=== PATIENT | male | born 1985 | race African-American/Black ===

== ENCOUNTER 2018-05-25 12:01 | Emergency (ER) | payer MEDICAID, OTHER ==
[2018-05-25] MEDS ORDERED: LIDOCAINE 1% INJ-PF (10 MG/ML) 30 ML SDV INJ ONE (12:27)
--- NOTE | 2018-05-25 12:33 | ER Document Report ---
HPI - HPI Time Seen by Provider: 05/25/18 12:22 Pain Level: 5 Notes: Patient is a 32-year-old male no significant past medical history who presents to the ED complaining of a boil to his inferior umbilical area times 3 days. Patient states that it started out as ingrown hair that he tried to "pop" and then resulted in more swelling and pain. Denies any drug allergies or IV drug use. No other concerns or complaints. Denies any headache, fever, URI, sore throat, chest pain, palpitations, syncope, cough, shortness of breath, wheeze, dyspnea, abdominal pain, nausea/vomiting/diarrhea, urinary retention, dysuria, hematuria. - ROS Systems Reviewed and Negative: Yes All other systems reviewed and negative Past Medical History - Social History Smoking Status: Never Smoker Family History: Reviewed & Not Pertinent Vertical Provider Document - CONSTITUTIONAL Agree With Documented VS: Yes Notes: PHYSICAL EXAMINATION: GENERAL: Well-appearing, well-nourished and in no acute distress. LUNGS: Breath sounds clear to auscultation bilaterally and equal. No wheezes rales or rhonchi. HEART: Regular rate and rhythm without murmurs, rubs, gallops. Musculoskeletal: FROM to passive/active. Strength 5+/5. Extremities: No cyanosis, clubbing, or edema b/l. Peripheral pulses 2+. Capillary refill less than 3 seconds. NEUROLOGICAL: Cranial nerves grossly intact. Normal speech, normal gait. Normal sensory, motor exams PSYCH: Normal mood, normal affect. SKIN: inferior umbilical area: there is a 5x4cm mildly erythemic, indurated, abscess noted. No streaks or active purulence. + tenderness associated. - INFECTION CONTROL TRAVEL OUTSIDE OF THE [place] IN LAST 30 DAYS: No Course - Re-evaluation Re-evalutation: 05/25/18 13:10 Patient is an afebrile, well-hydrated, 32-year-old male who presents to the ED with an abscess to his lower abdominal wall. Vitals are acceptable without significant tachycardia is otherwise unremarkable. Incision and drainage was performed successfully without any complications. Wound culture was obtained and wound dressing was placed. Wound instructions reviewed. Patient is nontoxic-appearing and is tolerating p.o. without difficulty. No further labs or imaging warranted at this time. I will send him home with a prescription for Keflex and Bactrim. Conservative measures otherwise. Recheck with your PCM in 2-3 days. Return to the ED with any worsening/concerning symptoms otherwise as reviewed discharge. Patient is in agreement. - Vital Signs Vital signs: Temp Pulse Resp BP Pulse Ox 99.0 F 77 16 124/75 100 05/25/18 12:10 05/25/18 12:10 05/25/18 12:10 05/25/18 12:10 05/25/18 12:10 Procedures - Incision and Drainage Lower Abdomen Time completed: 13:00 - Patient tolerated procedure well without any complications Type: Simple Anesthetic type: 1% Lidocaine mL's of anesthetic: 8 Blade size: 11 I&D procedure: Other - Chlorhexidine/saline Incision Method: Incision made by scalpel Amount/type of drainage: Moderate purulent Discharge - Discharge Clinical Impression: Abdominal wall abscess Condition: Stable Disposition: HOME, SELF-CARE Instructions: Abscess ([facility]), Cephalexin ([facility]), Post Incision and Drainage, Trimethoprim-Sulfa ([facility]) Additional Instructions: Do not shower or bathe for 24 hours. After 24 hours she may shower but no submersion of the wound under water. Keep the original dressing on the wound for 24 hours unless the drainage soaks through. Change the dressing daily thereafter and use a small amount of triple antibiotic ointment over the open wound. See your PCM in 2-3 days for recheck and continue direction for wound packing. Monitor for any signs of worsening pain or redness, streaks, and/or fever. Return to the ED if noticing any of the above symptoms or as needed. Take medications as directed. Prescriptions: Cephalexin Monohydrate [Keflex 500 mg Capsule] 500 mg PO TID #30 capsule Sulfamethoxazole/Trimethoprim [Bactrim Ds Tablet] 1 each PO BID #20 tablet Referrals: THERESE MANRIQUEZ MD [ACTIVE STAFF] - Follow up as needed
[2018-05-25 13:36] VITALS: BP 120/74
== END 2018-05-25 13:35 | disposition home or self-care (01) ==
LOC: ER 12:01
DX: L02.211 Cutaneous abscess of abdominal wall (principal)
CPT/HCPCS: 99283; 87070; 87205; 87075; 87077; 87186; 10060; A6266; J3490

== ENCOUNTER 2018-05-28 11:08 | Emergency (ER) | payer SELFPAY ==
[2018-05-28 11:13] VITALS: BP 111/84
--- NOTE | 2018-05-28 11:21 | ER Document Report ---
ED Wound - General Chief Complaint: Wound Recheck Stated Complaint: WOUND RECHECK Time Seen by Provider: 05/28/18 11:13 TRAVEL OUTSIDE OF THE [place] IN LAST 30 DAYS: No - HPI Notes: Patient is a 32-year-old male that presents to the emergency department for chief complaint of abscess re-evaluation. Patient had incision and drainage of an abdominal abscess on 05/25/18. He was prescribed Bactrim and Keflex. Patient has been taking his Bactrim and Keflex as prescribed and states he believes he has 2 days left. He was told to follow- up for a wound reevaluation which is why he is here. He states it is healing well and denies any increased pain redness or drainage. Patient states there is still packing in place. He has been washing with warm soapy water. He denies any fevers or chills. He does have some achy pain localized to the abscess area. Past Medical History: Negative Past Surgical History: Reviewed in chart Social History: Reviewed in chart Family History: Reviewed and noncontributory for presenting illness Allergies: Reviewed, see documented allergy list. REVIEW OF SYSTEMS: CONSTITUTIONAL : No fever No chills No diaphoresis No recent illness EENT: No vision changes No congestion No sore throat CARDIOVASCULAR: No chest pain No palpitations RESPIRATORY: No shortness of breath No cough No difficulty breathing GASTROINTESTINAL: No abdominal pain No nausea No vomiting No diarrhea GENITOURINARY: No dysuria No hematuria No difficulty urinating MUSCULOSKELETAL: No back pain No leg pain No arm pain SKIN: No rashes Abdominal abscess LYMPHATIC: No swollen, enlarged glands. NEUROLOGICAL: No lightheadedness No headache No weakness No paresthesias PSYCHIATRIC: No anxiety No depression PHYSICAL EXAMINATION: Vital signs reviewed, nursing noted reviewed. GENERAL: Well-appearing, well-nourished and in no acute distress. HEAD: Atraumatic, normocephalic. EYES: Eyes appear normal, extraocular movements intact, sclera anicteric, conjunctiva are normal. ENT: nares patent, oropharynx clear without exudates. Moist mucous membranes. NECK: Normal range of motion, supple without lymphadenopathy LUNGS: Breath sounds clear to auscultation bilaterally and equal. No wheezes rales or rhonchi. HEART: Regular rate and rhythm without murmurs ABDOMEN: Soft, nontender, normoactive bowel sounds. No rebound, guarding, or rigidity. No masses appreciated. EXTREMITIES: Nontender, good range of motion, no pitting or edema. NEUROLOGICAL: No focal neurological deficits. Moves all extremities spontaneously Motor and sensory grossly intact on exam. PSYCH: Normal mood, normal affect. SKIN: Warm, Dry, normal turgor, lower abdominal area of induration and linear 2.0 cm open wound. Purulent drainage. Packing in place. Mildly tender to palpation. No surrounding erythema or areas of fluctuance - Related Data Allergies/Adverse Reactions: No Known Allergies Allergy (Verified 05/28/18 11:09) Past Medical History - Social History Smoking Status: Never Smoker Family History: Reviewed & Not Pertinent Renal/ Medical History: Denies: Hx Peritoneal Dialysis Review of Systems - Review of Systems Notes: Dictated Physical Exam - Vital signs Vitals: Temp Pulse Resp BP Pulse Ox 98.4 F 74 14 111/84 99 05/28/18 11:12 05/28/18 11:12 05/28/18 11:12 05/28/18 11:12 05/28/18 11:12 - Notes Notes: Dictated Course - Re-evaluation Re-evalutation: 05/28/18 11:21 Vitals reviewed. Nursing notes reviewed. Patient has a well-healing abscess on his lower abdomen. He has no signs of reaccumulation of the abscess pocket or surrounding cellulitis. The packing was removed today by myself. Patient was given a dose of Tylenol for pain. He will continue taking his antibiotics at home as directed. He will be referred to primary care for follow-up. He was again counseled on wound care and hygiene. Patient in agreement with this plan and stable at discharge. - Vital Signs Vital signs: Temp Pulse Resp BP Pulse Ox 98.4 F 74 14 111/84 99 05/28/18 11:12 05/28/18 11:12 05/28/18 11:12 05/28/18 11:12 05/28/18 11:12 Discharge - Discharge Clinical Impression: Abdominal abscess Condition: Stable Disposition: HOME, SELF-CARE Instructions: Abscess ([facility]), Cephalexin ([facility]), Trimethoprim-Sulfa ([facility]), Family Physicians / Practices Additional Instructions: Please return to the emergency department if you have any worsening, or concern of your symptoms. Please return to the emergency department if you develop chest pain, difficulty breathing, severe abdominal pain, or ongoing vomiting. Please follow-up with your primary care physician in 2-3 days and any other recommended physicians. If prescribed, take all medications as directed. If you have any questions or concerns do not hesitate to return the emergency department for evaluation. Return to the emergency room if you have increased redness swelling drainage or pain around her abscess site Referrals: [facility] [Provider Group] - Follow up as needed
[2018-05-28] MEDS ORDERED: ACETAMINOPHEN 325 MG TABLET PO ONE (11:23)
== END 2018-05-28 11:31 | disposition home or self-care (01) ==
LOC: ER 11:08
DX: L02.211 Cutaneous abscess of abdominal wall (principal); Z48.01 Encounter for change or removal of surgical wound dressing
CPT/HCPCS: 99282